=== PATIENT | male | born 1985 | race Caucasian/White ===

== ENCOUNTER 2017-10-01 03:00 | Inpatient (IN) | payer MEDICAID, OTHER ==
[2017-10-01] MEDS ORDERED: TDAP ADULT 0.5 ML INJ (BOOSTRIX) IM ONE (04:06)
[2017-10-01] MEDS ORDERED: ACETAMINOPHEN 500 MG TAB PO ONE (04:06)
[2017-10-01] MEDS ORDERED: ONDANSETRON 4 MG/2 ML VIAL IVP ONE (04:14)
[2017-10-01 04:17] LABS: PLATELET COUNT 240 10^3/uL (150-400)
[2017-10-01 04:22] LABS: INR 0.98 (0.83-1.16); PROTIME(PATIENT) 13.2 SEC (12.0-15.0)
--- NOTE | 2017-10-01 04:22 | EDPHY ---
H & P Stated Complaint: fall and hit head, possible syncope Time Seen by Provider: 10/01/17 03:10 HPI/ROS: HPI: The patient presents with head injury which occurred just prior to arrival. 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 Other security guards called 911. The patient is complaining of an occipital throbbing headache. He is unable to provide any further history and does not recall the event. He does take aspirin daily for aches and pains, and last took it yesterday. REVIEW OF SYSTEMS Constitutional: No fever, no chills. Eyes: No discharge. ENT: No sore throat. Cardiovascular: No chest pain, no palpitations. Respiratory: No cough, no shortness of breath. Gastrointestinal: No abdominal pain, no vomiting. Genitourinary: No hematuria. Musculoskeletal: No back pain. Skin: No rashes. Neurological: No headache. 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 week ago TRAUMA PHYSICAL General Appearance: Alert, no distress Head: Left parieto-occipital region with 4 cm longitudinal laceration with small amount of active bleeding Eyes: Pupils equal, round, reactive ENT, Mouth: No hemotypanium, no oral trauma Neck: Non- tender, trachea midline Respiratory: No chest wall tenderness, no subcutaneous air, lungs clear bilaterallty Cardiovascular: Regular rate and rhythm Abdomen: Abdomen is soft and non-tender, pelvis stable Skin: No lacerations, No abrasion Back: No midline T/L/S pain Extremities: Non-tender, full range of motion Neurological: A&Ox2, GCS=14,normal motor function with 5/5 strength in all 4 extremities, normal sensory exam Source: Patient, EMS Exam Limitations: Clinical condition - Personal History Current Tetanus/Diphtheria Vaccine: Unsure Current Tetanus Diphtheria and Acellular Pertussis (TDAP): Unsure - Medical/Surgical History Hx Asthma: No Hx Chronic Respiratory Disease: No Hx Diabetes: No Hx Cardiac Disease: No Hx Renal Disease: No Hx Cirrhosis: No Hx Alcoholism: No Hx HIV/AIDS: No Hx Splenectomy or Spleen Trauma: No Other PMH: denies - Social History Smoking Status: Never smoked Constitutional: Initial Vital Signs Temperature (C) 36.5 C 01/24/18 03:04 Heart Rate 76 10/01/17 03:04 Respiratory Rate 16 10/01/17 03:04 Blood Pressure 128/81 H 10/01/17 03:04 O2 Sat (%) 100 10/01/17 03:04 O2 Delivery Mode Room Air Allergies/Adverse Reactions: No Known Allergies Allergy (Unverified 10/01/17 03:04) Home Medications: Medication Instructions Recorded NK [No Known Home Meds] 10/01/17 Medical Decision Making - Diagnostics Imaging Results: CT head without contrast demonstrates left occipital and parietal nondisplaced skull fracture, small intraparenchymal hemorrhagic cortical contusions bilaterally, left greater than right, no shift or mass effect. CT cervical spine without contrast demonstrates no acute fracture. Both of these imaging studies were discussed with the on-call radiologist Dr. Dawson. Imaging: Discussed imaging studies w/ call center team leader Radiologist Procedures: LACERATION REPAIR Procedure: Laceration repair. Verbal consent was obtained from the patient. The linear 4 cm laceration on the parieto-occipital scalp was anesthetized using bupivacaine 0.5%. The wound was scrubbed, draped and explored to its base with a gloved finger. There were no deep structures involved. . The wound was repaired with 4 ivania. The wound repair was simple. The procedure was performed by myself. Differential Diagnosis: 32-year-old male, history of WPW status post ablation, brought in by ambulance after head injury. Per report from other security guards, patient slipped on the ice, fell backwards, hit his head and lost consciousness. Patient sustained laceration to occipital scalp. He is completely amnestic to the event. He is complaining only of an occipital headache. He denies any vision changes, vomiting. He is taking aspirin daily, dose unknown. Differential diagnosis includes intraparenchymal hemorrhage, subdural hematoma, concussion, cervical fracture. In the emergency department, CT scan of head and C-spine were performed which did show frontal intraparenchymal hemorrhages, left greater than right. He also has a left parieto-occipital skull fracture. Because of this, I consulted with Neurosurgery and discussed the case with Dr. Fonseca the on-call neurosurgeon. He recommends admission for observation to the step-down unit. He recommends anti epileptic prophylaxis with Keppra. Given that the patient has suffered from a traumatic injury which will require admission to the hospital, I consulted with the trauma surgeon stone spreader operator Dr. Ferguson who will see the patient in consultation. The patient's scalp laceration was repaired by me. His tetanus vaccine was updated. We attempted to call his mother, however she was not available. - Data Points Laboratory Results: Laboratory Results 10/01/17 03:00 10/01/17 03:00 10/01/17 10/01/17 10/01/17 03:00 03:00 03:00 WBC 7.82 10^3/uL 10^3/uL (3.80-9.50) RBC 4.95 10^6/uL 10^6/uL (4.40-6.38) Hgb 15.3 g/dL g/dL (13.7-17.5) Hct 44.5 % % (40.0-51.0) MCV 89.9 fL fL (81.5-99.8) MCH 30.9 pg pg (27.9-34.1) MCHC 34.4 g/dL g/dL (32.4-36.7) RDW 12.6 % % (11.5-15.2) Plt Count 240 10^3/uL 10^3/uL (150-400) MPV 11.1 fL fL (8.7-11.7) Neut % (Auto) 41.4 % % (39.3-74.2) Lymph % (Auto) 46.5 % H % (15.0-45.0) Gulf % (Auto) 7.5 % % (4.5-13.0) Eos % (Auto) 3.1 % % (0.6-7.6) Baso % (Auto) 1.0 % % (0.3-1.7) Nucleat RBC Rel Count 0.0 % % (0.0-0.2) Absolute Neuts (auto) 3.23 10^3/uL 10^3/uL (1.70-6.50) Absolute Lymphs (auto) 3.64 10^3/uL H 10^3/uL (1.00-3.00) Absolute Monos (auto) 0.59 10^3/uL 10^3/uL (0.30-0.80) Absolute Eos (auto) 0.24 10^3/uL 10^3/uL (0.03-0.40) Absolute Basos (auto) 0.08 10^3/uL 10^3/uL (0.02-0.10) Absolute Nucleated RBC 0.00 10^3/uL 10^3/uL (0-0.01) Immature Gran % 0.5 % % (0.0-1.1) Immature Gran # 0.04 10^3/uL 10^3/uL (0.00-0.10) PT 13.2 SEC SEC (12.0-15.0) INR 0.98 (0.83-1.16) APTT 22.5 SEC L SEC (23.0-38.0) Sodium 142 mEq/L mEq/L (135-145) Potassium 3.9 mEq/L mEq/L (3.5-5.2) Chloride 103 mEq/L mEq/L (97-110) Carbon Dioxide 25 mEq/l mEq/l (22-31) Anion Gap 14 mEq/L mEq/L (8-16) BUN 14 mg/dL mg/dL (7-23) Creatinine 1.0 mg/dL mg/dL (0.7-1.3) Estimated GFR > 60 Glucose 103 mg/dL H mg/dL (70-100) Calcium 9.0 mg/dL mg/dL (8.5-10.4) Medications Given: Discontinued Medications Acetaminophen (Tylenol) 1,000 mg PO EDNOW ONE Stop: 10/01/17 04:07 Last Admin: 10/01/17 04:30 Dose: 1,000 mg Diphtheria/Tetanus/Acell Pertussis (Boostrix) 0.5 ml IM .ONCE ONE Stop: 10/01/17 04:07 Last Admin: 10/01/17 04:26 Dose: 0.5 ml Morphine Sulfate (Morphine) 4 mg IVP EDNOW ONE Stop: 10/01/17 04:07 Last Admin: 10/01/17 04:22 Dose: 4 mg Ondansetron HCl (Zofran) 4 mg IVP EDNOW ONE Stop: 10/01/17 04:15 Last Admin: 10/01/17 04:19 Dose: 4 mg Departure - Departure Disposition: [facility] Acute Clinical Impression: Intraparenchymal hemorrhage of brain Fall Qualifiers: Encounter type: initial encounter Qualified Code(s): W19.XXXA - Unspecified fall, initial encounter Skull fracture Qualifiers: Encounter type: initial encounter Skull bone/location: occipital bone Fracture type: closed Laterality: left Condition: Fair
[2017-10-01] MEDS ORDERED: levETIRAcetam 750 MG in NS 100 ML IV ONE (04:25)
--- NOTE | 2017-10-01 04:54 | CPEKG ---
Heart Rate: 80 RR Interval: 750 P-R Interval: 152 QRSD Interval: 96 QT Interval: 388 QTC Interval: 448 P [place]: 71 QRS [place]: 79 T Wave [place]: 50 EKG Severity - NORMAL ECG - EKG Impression: SINUS RHYTHM Electronically Signed By: Jenny Murphy 01-Oct-2017 06:45:49
[2017-10-01] MEDS ORDERED: ACETAMINOPHEN 325 MG TAB PO PRN (05:16)
[2017-10-01] MEDS ORDERED: ONDANSETRON 4 MG/2 ML VIAL IVP PRN (05:16)
[2017-10-01] MEDS ORDERED: ONDANSETRON DISINTEGRATING 4 MG TAB PO PRN (05:16)
[2017-10-01] MEDS: NS 1,000 ML IV SCH ×2 (05:52→18:18)
[2017-10-01] MEDS: levETIRAcetam 250 MG TAB PO SCH ×2 (07:59→20:13)
[2017-10-01] MEDS: HYDROCODONE/APAP 5/325 TAB PO PRN (08:00)
--- NOTE | 2017-10-01 09:21 | GHP ---
[f rep st] HISTORY AND PHYSICAL DATE OF ADMISSION: 10/01/2017 CHIEF COMPLAINT: Fall with head injury. HISTORY OF PRESENT ILLNESS: This is a 32-year-old male who states he was at work and he is amnesic t o the event, but states that the next thing he knew he was on the ground. It appears that he had sli pped on some ice, falling backwards and landed on his head. 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 Currently the patient is complaining of a headache as well as some vertigo. The patikennedy tovar states that he has struggled recently with panic attacks and states that he did feel a panic attack coming on prior to this event and is not sure if that is some of the reason why he fell. The zafar tovar currently also is being treated with meclizine and Sudafed for some fluid that was seen behind his ears by his PCP and that has most likely contributed to his episodes of vertigo over the last week. He denies any blood thinning medications. He denies any nausea, vomiting, fever, chills, or any visi on changes. REVIEW OF SYSTEMS: All pertinent positive and negative review of systems as stated in HPI. 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 MEDICATIONS: Consist of no current home medications. ALLERGIES: Patient has no known drug allergies. PHYSICAL EXAMINATION: VITAL SIGNS: Blood pressure 117/74, heart rate 87, respiratory rate is 18, te mperature 37.0 degrees Celsius, O2 saturation is 97% on room air. CONSTITUTIONAL: Patient is alert and oriented x4. He is in no acute distress. HEENT: Head does have a laceration along the left parietal occipital region. Eyes: Pupils are equa l, react to light and accommodation. Extraocular muscles are intact. NEUROLOGIC: Cranial nerves 2- 12 are grossly intact. Tongue protrudes midline. Face is symmetrical. Palate rises symmetrically. Accessory muscles are 5/5 and equal in strength. Motor: Bilateral upper extremities are 5/5 and eq ual in strength in all muscle groups including deltoids, biceps, triceps, wrist extensors, flexors, i nterossei and furnace loader. Bilateral lower extremities are 5/5 and equal in strength in quadriceps, hamstri ngs, dorsiflexion, plantar flexion, and EHL. His sensation is intact bilaterally over the neural geremias matomal distribution of the body. RESPIRATORY: Patient has normal work of breathing. ABDOMEN: Patient has no guarding. EXTREMITIES: There is no cyanosis or edema noted. LABORATORY DATA: White blood cell count 7.82, red blood cell count 4.95, hemoglobin 15.3, hematocrit 44.5, platelets 240. PT 13.2, INR 0.98. PTT 22.5. Sodium 142, potassium 3.9, chloride 103, carbon dioxide 24, anion gap 14, BUN 14, creatinine 1.0, calcium 9.0, glucose 103. DIAGNOSTIC IMAGING REVIEW: 1. Head CT was performed and shows bilateral frontal lobe anterior inferior mesial acute cortical he morrhages, hemorrhagic cortical contusions. 2. Nondisplaced left occipital bone fracture. 3. No epidural or subdural hematoma. 4. No midline shift or hydrocephalus. ASSESSMENT AND PLAN: This is a 32-year-old male who slipped and fell on the ice at work yesterday, h itting his head. The patient is amnesic to this event. There may have been an onset of a panic mert ck prior to this event, but it is unknown if this is the cause. Head CT was performed after he was t aken to the [facility] Emergency Room and showed a bilateral frontal lobe anterior and inferio r mesial acute cortical hemorrhages with hemorrhagic cortical contusions. There is no mass effect or hydrocephalus. There is no evidence of epidural or subdural hematoma. The patient currently is karmen rologically intact without any deficits. He is struggling with vertigo and has some dizziness that w as being treated a week prior to his fall that is unrelated to this injury. He is having mild headac hes and is otherwise doing okay. At this time, there is no need for any further scans. The patient was seen by Dr. Arora and myself this morning at approximately 7:30 a.m. We will continue to watch him today with neurologic checks q.4 hours. He will work with therapies. Should he be doing well to clyde and cleared with therapies, he may be discharged back to home. He will follow up with his PCP in regard to his continued problems with vertigo as well as any panic attack management. Per the ovidio holder, he was supposed to go to a support group today to talk about panic attacks and is now in the h ospital so was unable to go. Any questions or concerns, please contact the Neurosurgical team. He m ay be up and out of bed as tolerated. DVT prophylaxis is to include GLEN's, SCDs, and any pharmacolog ical prophylaxis contraindicated due to current head bleed. Any questions or concerns, please contac t the Neurosurgical team. /[id number]/MODL
--- NOTE | 2017-10-01 09:42 | ASMTCASEMG ---
Living Arrangements What is your living Answers: With One Parent arrangement? Who do you live with? Type Of Residence What kind of residence do Answers: Apartment you live in? Discharge Plan Comments Coordination Status Comments Notes: Patient is a 32yo single male who was admitted after falling at work for skull fracture and frontal hemorrhage.The patient does not remember the fall but states it may have been influenced by a panic attack. Patient reports he has struggled with panic attacks recently and also some vertigo. 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 Patient will most likely d/c to home independently. CM available for any d/c needs that might arise. Date Signed: 10/01/2017 09:42 AM Electronically Signed By:Oneyda Hudson LCSW
[2017-10-01] MEDS ORDERED: MAGNESIUM HYDROX PO PRN (10:38)
[2017-10-01] MEDS ORDERED: MECLIZINE HCL 12.5 MG TAB PO PRN (10:38)
[2017-10-01] MEDS ORDERED: CALCIUM CARB PO PRN (10:38)
[2017-10-01] MEDS: busPIRone 5 MG TAB PO SCH ×2 (11:26→20:14)
[2017-10-01] MEDS: ACETAMINOPHEN 500 MG TAB PO SCH ×2 (14:02→21:34)
--- NOTE | 2017-10-01 14:07 | GCON ---
[f rep st] CONSULTATION CRITICAL CARE CONSULT DATE OF CONSULTATION: 10/01/2017 HISTORY OF PRESENT ILLNESS: The patient is a 32-year-old male, who has a history of anxiety disorder and has been treated with a variety of medications, most recently Lexapro and BuSpar. He was feelin g quite well and stopping his medications. Was at work and apparently had an anxiety attack. Subseq uently, resulted in syncope and a fall, where he suffered significant injuries to his head, including a nondisplaced skull fracture, multiple contusions with frontal hemorrhaging, and a posterior lacera tion. He said that he has had episodes in the past. While he was in [place] last year, he had 2 simil ar episodes where they were provoked by anxiety. He does have a history of Rngrs-Cxmvccnvf-Aldss syn drome, but had an ablation in 1999, and has been well controlled since that time without any other is sues. He denies any a recreational drug use or any other infectious complaints at this time. REVIEW OF SYSTEMS: Negative otherwise. PAST MEDICAL HISTORY: WPW, anxiety, and panic attacks as described. PAST SURGICAL HISTORY: None. SOCIAL HISTORY: Nonsmoker. No alcohol or IV drug use. FAMILY HISTORY: Noncontributory. ALLERGIES: None. CURRENT MEDICATIONS: Include Tylenol, [place], buspirone, Lexapro, Keppra, meclizine, Zofran, and norm al saline. PHYSICAL EXAMINATION: VITAL SIGNS: He was afebrile, blood pressure was 117/74, heart rate 87, respi rations 10, oxygen saturation 97% on room air. GENERAL: He was awake and mildly somnolent, kept his eyes closed with the lights on, but was quite cooperative and able answer questions appropriately. Pupils were small but reactive and equal. NECK: Supple, without adenopathy or jugular vein distenti on. Mucous membranes moist, without erythema or exudate. LUNGS: Breath sounds were clear to auscul tation bilaterally, without wheezes, rubs, or rales. HEART: Regular rate and rhythm, without murmur s, rubs, or gallops. ABDOMEN: Soft, nontender, nondistended, without hepatosplenomegaly. EXTREMITI ES: No clubbing, cyanosis, or edema. NEUROLOGIC: Nonfocal, including cranial nerves, deep tendon r eflexes. SKIN: Warm and dry, without evidence of rash. OBJECTIVE DATA: Includes head CT as described above. His labs were relatively unremarkable. ASSESSMENT AND PLAN: 1. Syncopal episode, which is presumably related to anxiety. He was unaware of the events leading u p to this. Report suggested that there was a mechanical fall, but this has been subsequently disprov en. It is quite possible that he is inadvertently causing an increase in intrathoracic pressure suff icient to cause a vagal release and subsequent syncope. His EKGs show no delta waves or prolonged FL interval, and no evidence of Bttun-Mmuqdyzdm-Uulrl, or any other arrhythmias, and his monitors have been similar, as well. His labs were normal, although a toxicology screen was not sent, and I do not see any other evidence to support seizure as a cause of syncope. 2. Skull fractures and intracranial bleeding as described above. His pain is being relatively well controlled. We will start him on scheduled Tylenol now. Trauma Service is following. No planned in terventions. 3. History of Xwaex-Byygqdjmu-Nismk. As I said, this appears to be stable, and there are no further requirements at this time. /[id number]/MODL
--- NOTE | 2017-10-01 18:04 | GCON ---
[f rep st] CONSULTATION TRAUMA CONSULTATION REFERRING PHYSICIAN: Jenny Murphy MD Trauma consultation request because of head injury. This patient is being admitted to Neurosurgery by Dr. Fonseca. HISTORY: The history is somewhat unclear. 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 He does have chronic problems with anxiety and did feel a panic attack was coming on. By initial report, he slipped on the ice and hit his head. This was reported by a application security developer. EMS arrived and the patient was taken to the hospital. (An alternate story is that he was in a meeting, felt lightheaded and then fell). He was seen in the ER and found to have a left occipital skull fracture and a high occipital left posterior parietal 4 cm laceration repaired with ivania. On the CT scan, he has the fracture as mentioned above. It is a nondisplaced fracture, as well as bilateral frontal intraparenchymal cortical hemorrhages, left greater than right. These appear to be contrecoup type injuries. He has had no prior history of seizures and a questionable history of concussions. MEDICATIONS: BuSpar 7.5 mg twice a day. Lexapro 10 mg daily. He takes 1 Rolaid tablet daily. He takes meclizine 12.5 mg daily, naproxen 220 mg daily, and pseudoephedrine 30 mg every 6 hours. He recently has been complaining of some dizziness and vertigo which has been off and on. He has been complaining of lightheadedness for the past week. This is why he was started on the pseudoephedrine and the meclizine. He is known to have had Vuvuq-Bquxpqwjn-Ccavz syndrome treated with ablation years ago. No ectopy had been noted in the ER. ALLERGIES: He has no known drug allergies. SOCIAL HISTORY: He drinks alcohol on a very rare basis. His Vrmvs-Jzwhwafxl-Jqzdj ablation was in the year 1999. He has not had any irregular heartbeats since that time. There is no history of rheumatic fever, tuberculosis, hepatitis, or transfusions. REVIEW OF SYSTEMS: He has had increasing heartburn for the last few months. He is H pylori negative. He has not had further evaluation. [place]. Otherwise completely negative. PHYSICAL EXAMINATION: HEENT: He has a staple repair posteriorly on his scalp in the occipital left occipital parietal region close to the midline. His skull is otherwise normocephalic. He has normal dental occlusion. NEUROLOGIC: He is oriented to person, place, and time. His GCS is 15. Extraocular movements are intact. Pupils were equal, round, reactive. Hand liquor commissioner is good. He is moving all extremities. There are no focal or lateralizing findings. NECK: Nontender. CHEST: Stable to AP and lateral compression. There are no contusions on his shoulders, back, elbows, or forearms. CARDIAC: S1, S2 normal. Normal split of S2 without murmurs, rubs, or gallops. ABDOMEN: Soft, nontender. PELVIS: Stable to AP and lateral compression. EXTREMITIES: All extremities are ranged and are totally unremarkable. IMPRESSION: Patient with fall of uncertain etiology. It appears it may not have been a slip on the ice, but rather vertiginous in nature. Secondary issue is anxiety. He is being admitted to Neurosurgery at this point. There is nothing further to add from a trauma surgery standpoint. Please reconsult if I can be of any further assistance. /[id number]/MODL MTDD
[2017-10-02] MEDS: ACETAMINOPHEN 500 MG TAB PO SCH ×3 (04:57→20:47)
--- NOTE | 2017-10-02 07:51 | NEUSURGPN ---
Assessment/Plan: A: 32 yo M s/p fall on ice with non displaced skull fracture and small frontal contusion. 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 No issues with vision. Objective: AAOx3 NAD VSS CN II-XII grossly intact MAEx4 Motor 5/5 BUE/BLE +LT Urinary Catheter in Place: No - Physician Discussed Patient with : [facility] Neurosurgery Physical Exam - Vitals, I&O, Labs I and O 10/01/17 10/02/17 10/03/17 05:59 05:59 05:59 Intake Total 2895 Output Total 1200 Balance 1695 Intake: Oral (ml) 1000 IV Intake (ml) 935 IV Infused (ml) 960 Ns 1,000 ml @ 75 mls/hr 860 IV CONT DEE DEE Rx#: [id number] levETIRAcetam 750 mg In 100 Ns 100 ml @ 420 mls/hr IV EDNOW ONE Rx#:[id number] Output: Urine (ml) 1200 Urinal 1200 Other: Number of Voids Toilet 2 Vital Signs Temp Pulse Resp BP Pulse Ox 36.9 C 78 12 105/62 99 10/01/17 20:00 10/02/17 04:00 10/02/17 04:00 10/02/17 04:00 10/02/17 04:00 ICD10 Worksheet Patient Problems: Problems Problem Status Onset Fall Acute Intraparenchymal hemorrhage of brain Acute Skull fracture Acute
[2017-10-02] MEDS: levETIRAcetam 250 MG TAB PO SCH ×2 (08:06→20:46)
[2017-10-02] MEDS: busPIRone 5 MG TAB PO SCH ×2 (08:06→20:46)
[2017-10-02] MEDS: ESCITALOPRAM OXALATE 10 MG TAB PO SCH (08:06)
[2017-10-02] MEDS: NS 1,000 ML IV SCH (08:06)
[2017-10-02] MEDS: HYDROCODONE/APAP 5/325 TAB PO PRN (12:03)
--- NOTE | 2017-10-02 13:14 | PDINTPN ---
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 He had an event that was witnessed followed by syncope and fall with non-displaced skull fracture and small contusions. He has done well with clse observation since admission and no surgical intervention was required. * Skull fracture/contusions- stable clinically. Repeat head CT, PT/OT eval with likely dc home today * Anxiety- resuming previous meds as outpatient * Syncope likely related to anxiety/excess vagal tone- no evidence of arrhythmia despite remote history of WPW (ablated in 1999). * OK for dc from critical care perspective. * * Subjective: no events overnight Objective: Vital Signs Temp Pulse Resp BP Pulse Ox 36.6 C 84 14 100/61 98 10/02/17 11:55 10/02/17 11:55 10/02/17 11:55 10/02/17 11:55 10/02/17 11:55 10/01/17 10/02/17 10/03/17 05:59 05:59 05:59 Intake Total 2895 Output Total 1200 Balance 1695 PT 13.2 SEC (12.0-15.0) 10/01/17 03:00 INR 0.98 (0.83-1.16) 10/01/17 03:00 Physical Exam - Physical Exam General Appearance: no apparent distress EENT: PERRL/EOMI Neck: supple Respiratory: lungs clear, normal breath sounds, decreased breath sounds, No respiratory distress, No accessory muscle use Cardiac/Chest: regular rate, rhythm, No edema Abdomen: non-tender, soft, No distended Skin: normal color, warm/dry, No cyanosis Lymphatic: no adenopathy Extremities: No pedal edema Neuro/Psych: normal mood/affect, oriented x 3 ICD10 Worksheet Patient Problems: Problems Problem Status Onset Fall Acute Intraparenchymal hemorrhage of brain Acute Skull fracture Acute
[2017-10-02] MEDS: ACET/CAFFEINE/BUTA FIORICET 1 EACH TAB PO PRN ×2 (13:44→20:46)
[2017-10-03] MEDS: ACETAMINOPHEN 500 MG TAB PO SCH (05:34)
[2017-10-03] MEDS: ESCITALOPRAM OXALATE 10 MG TAB PO SCH (07:36)
[2017-10-03] MEDS ORDERED: oxyCODONE IR 5 MG TAB PO PRN (07:47)
[2017-10-03] MEDS: levETIRAcetam 250 MG TAB PO SCH (08:14)
[2017-10-03] MEDS: ACET/CAFFEINE/BUTA FIORICET 1 EACH TAB PO PRN (08:15)
[2017-10-03] MEDS: busPIRone 5 MG TAB PO SCH (08:15)
--- NOTE | 2017-10-03 08:31 | NEUSURGPN ---
Assessment/Plan: A: 32 yo M s/p fall on ice with non displaced skull fracture and small frontal contusion. Hx of vertigo/panic attacks Plan: -PT/OT/RESPITE COORDINATOR -Q4 neuro checks -Repeat HCT done yesterday, reviewed and is stable. -neuro intact this am -fioricet helping headaches. will add oxycodone so that he can alternate -Plan for DC to home later today if passes therapies -Will need follow up with Dr Arora in about 2 weeks -Please call NS with any questions or concerns -D/w Dr Arora Subjective: Pt resting in bed, mother at bedside. States that fioricet helping headaches somewhat. Objective: AAOx3 VSS bilateral orbital ecchymosis CN II-XII grossly intact Motor 5/5 BUE/BLE +LT Urinary Catheter in Place: No - Physician Discussed Patient with : [facility] Physical Exam - Vitals, I&O, Labs I and O 10/02/17 10/03/17 10/04/17 05:59 05:59 05:59 Intake Total 2895 1900 Output Total 1200 1200 Balance 1695 700 Intake: Oral (ml) 1000 400 IV Intake (ml) 935 IV Infused (ml) 960 1500 Ns 1,000 ml @ 75 mls/hr 860 1500 IV CONT DEE DEE Rx#: [id number] levETIRAcetam 750 mg In 100 Ns 100 ml @ 420 mls/hr IV EDNOW ONE Rx#:[id number] Output: Urine (ml) 1200 1100 Urinal 1200 1100 Emesis (ml) 100 Other: Number of Voids Toilet 2 Number of Emesis 1 Occurrences Vital Signs Temp Pulse Resp BP Pulse Ox 36.8 C 74 11 L 107/66 100 10/03/17 07:32 10/03/17 07:32 10/03/17 07:32 10/03/17 07:32 10/03/17 07:32 ICD10 Worksheet Patient Problems: Problems Problem Status Onset Fall Acute Intraparenchymal hemorrhage of brain Acute Skull fracture Acute
[2017-10-03 11:59] VITALS: RESP 16; TEMP 98.7; O2SAT 97
[2017-10-03 12:20] VITALS: BP 111/77; PULSE 74
--- NOTE | 2017-10-03 13:08 | PDINTPN ---
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 He had an event that was witnessed followed by syncope and fall with non-displaced skull fracture and small contusions. He has done well with clse observation since admission and no surgical intervention was required. * Skull fracture/contusions- stable clinically. * Anxiety- resuming previous meds as outpatient * Syncope likely related to anxiety/excess vagal tone- no evidence of arrhythmia despite remote history of WPW (ablated in 1999). * OK for dc from critical care perspective, but PT said he is too unstable for home at this point. Perhaps IP{ rehab or possibly in AM? * * 10/03/17 13:07 Subjective: no events Objective: Vital Signs Temp Pulse Resp BP Pulse Ox 37.1 C 82 16 108/63 97 10/03/17 11:54 10/03/17 11:54 10/03/17 11:54 10/03/17 11:54 10/03/17 11:54 10/02/17 10/03/17 10/04/17 05:59 05:59 05:59 Intake Total 2895 1900 Output Total 1200 1200 Balance 1695 700 PT 13.2 SEC (12.0-15.0) 10/01/17 03:00 INR 0.98 (0.83-1.16) 10/01/17 03:00 Physical Exam - Physical Exam General Appearance: no apparent distress EENT: PERRL/EOMI Neck: supple Respiratory: lungs clear, No respiratory distress, No accessory muscle use Cardiac/Chest: regular rate, rhythm, No edema Abdomen: non-tender, soft, No distended Skin: normal color, warm/dry Extremities: No pedal edema Neuro/Psych: alert, normal mood/affect ICD10 Worksheet Patient Problems: Problems Problem Status Onset Fall Acute Intraparenchymal hemorrhage of brain Acute Skull fracture Acute
== END 2017-10-03 14:25 | disposition home or self-care (01) | DRG 87 ==
LOC: EDUNIT# → F2N 04:54 → OBSVTOIN 05:16
PROVIDERS: ADMIT Neurological Surgery; ATTEND Neurological Surgery
PROC: 0HQ0XZZ Repair Scalp Skin, External Approach (ICD-10-PCS; principal; 2017-10-01)
DX: S02.11HA Other fracture of occiput, left side, initial encounter for closed fracture (principal); S06.360A Traumatic hemorrhage of cerebrum, unspecified, without loss of consciousness, initial encounter; S01.01XA Laceration without foreign body of scalp, initial encounter; W00.0XXA Fall on same level due to ice and snow, initial encounter; Y92.59 Other trade areas as the place of occurrence of the external cause; Y99.0 Civilian activity done for income or pay
CPT/HCPCS: 92507-GN; 92523-GN; 96365; 97116-GP; 97161-GP; 97167-GO; 97530-GP; 97535-GO; J1953; J2405

== ENCOUNTER → 2017-10-15 | Outpatient (CLI) | payer MEDICAID | LOC: FIMAGING 10:47 | PROVIDERS: ATTEND Nurse Practitioner | DX: I61.9 Nontraumatic intracerebral hemorrhage, unspecified (principal); S02.82XD Fracture of other specified skull and facial bones, left side, subsequent encounter for fracture with routine healing ==

== ENCOUNTER → 2018-07-14 | Outpatient (CLI) | payer MEDICAID | LOC: FIMAGING 12:22 | PROVIDERS: ATTEND Internal Medicine | DX: H61.22 Impacted cerumen, left ear (principal) ==